=== PATIENT | female | born 1975 | race Two or more races ===

== ENCOUNTER 2025-04-02 09:45 | Emergency (ER) | payer OTHER ==
[~2025-04-02] VITALS: Ht 167.6 cm; Wt 98.4 kg
[2025-04-02 10:24] VITALS: BP 127/89; O2SAT 96
[2025-04-02] MEDS ORDERED: COZAAR25 MG PO (10:24)
[2025-04-02] MEDS ORDERED: 0.9 % SODIUM CHLORIDE 1,000 ML IV SCH (10:45)
[2025-04-02] MEDS ORDERED: CEFTRIAXONE SODIUM 2,000 MG VIAL IV ONE (10:45)
[2025-04-02] MEDS ORDERED: IPRATROPIUM BROMIDE 0.5 MG/2.5 ML AMPUL.NEB IH SCH (10:45)
[2025-04-02] MEDS ORDERED: ACETAMINOPHEN 325 MG TABLET PO ONE ×2 (10:45→11:26)
[2025-04-02] MEDS ORDERED: ALBUTEROL SULFATE 3 ML/2.5 MG AMPUL.NEB IH SCH (10:45)
[2025-04-02] MEDS ORDERED: IPRATROPIUM BROMIDE 0.5 MG/2.5 ML AMPUL.NEB IH ONE (11:05)
[2025-04-02] MEDS ORDERED: ALBUTEROL SULFATE 3 ML/2.5 MG AMPUL.NEB IH ONE (11:05)
[2025-04-02] MEDS ORDERED: ACETAMINOPHEN 500 MG GEL..CAP PO ONE (11:29)
[2025-04-02 12:13] LABS: BASO % 0.5 % (0.1-1.2); EOS # 0.02 (0.04-0.54); EOS % 0.5 % (0.7-7.0); LYMPH # 1.50 (1.18-3.74); LYMPH % 36.5 % (19.3-53.1); MEAN PLATELET VOLUME 10.90 fl (9.4-12.4); MONO # 0.52 (0.24-0.82); NEUT # 2.04 (1.56-6.13); NEUT % 49.6 % (34.0-71.1); RED CELL DISTRIBUTION WIDTH 14.1 % (11.6-14.4)
[2025-04-02 12:40] LABS: MONO % 12.7 % (4.7-12.5)
[2025-04-02 12:44] LABS: ALT/SGPT 23.0 U/L (12-78); AST/SGOT 22.0 U/L (15-37); BILIRUBIN TOTAL 0.46 mg/dL (0.3-1.2); BUN CREA RATIO 17.0 (7.0-25.0); CREATININE SERUM 0.86 mg/dL (0.55-1.02); GFR 69.84; GLOBULINA 4.3 G/DL (2.4-3.5); GLUCOSE FASTING 88.0 mg/dL (65-100); OSMOLALITY SERUM 285.0 MOSM/KG (275-295)
[2025-04-02 12:59] LABS: COVID-19 AG NEGATIVE (NEGATIVE)
== END 2025-04-02 14:52 | disposition home or self-care (01) ==
LOC: ER 09:45
PROVIDERS: General Practice
DX: M79.18 Myalgia, other site (principal); R05.3 Chronic cough; I51.7 Cardiomegaly; Z20.822 Contact with and (suspected) exposure to COVID-19; I10 Essential (primary) hypertension